=== PATIENT | male | born 1965 | race Hispanic/Latino ===

== ENCOUNTER 2016-09-05 08:22 | Inpatient (IN) | payer OTHER ==
[~2016-09-05] VITALS: Ht 182.9 cm; Wt 95.9 kg
[2016-09-05] MEDS ORDERED: ROBA750T4 PO (08:33)
[2016-09-05] MEDS ORDERED: IBUP-1114 PO (08:33)
[2016-09-05 08:58] LABS: BASO % 0.5 % (0.0-1.0); EOS # 0.2 K/mm3 (0.0-0.50); EOS % 3.8 % (0.0-3.0); LARGE UNSTAINED CELL # 0.1 K/mm3 (0.0-0.4); LARGE UNSTAINED CELL % 1.1 % (0.0-4.0); LYMPH # 1.3 K/mm3 (1.5-4.5); LYMPH % 21.1 % (24.0-44.0); MEAN CORPUSCULAR HEMOGLOBIN 31.6 pg (27.0-33.0); MONO # 0.3 K/mm3 (0.0-0.8); MONO % 4.6 % (0.0-5.0); NEUTROPHILS # 4.1 K/mm3 (1.8-7.7); NEUTROPHILS % 68.9 % (36.0-66.0); PLATELET COUNT, AUTOMATED 253 k/mm3 (150-450); RED CELL DISTRIBUTION WIDTH 12.4 % (11.5-14.5); WHITE BLOOD COUNT 5.9 K/mm3 (4.0-10.0)
--- NOTE | 2016-09-05 09:48 | REP ---
CT Head without contrast HISTORY: Syncope COMPARISON: None There is no intraparenchymal hemorrhage, acute infarct, mass or midline shift. The ventricular system is normal in appearance. There is no extra cerebral collection. There is no fracture. The visualized sinuses are clear. IMPRESSION: There is no intracranial lesion. Signed by Tyler Potter MD 09/05/2016 09:40 A
[2016-09-05 10:20] LABS: ANION GAP 5 MEQ/L (8-16); BLOOD UREA NITROGEN 20 MG/DL (7-18); CALCIUM LEVEL 8.6 MG/DL (8.5-10.1); CARBON DIOXIDE LEVEL 29 MEQ/L (21-32); CHLORIDE LEVEL 106 MEQ/L (98-107); CREATININE FOR GFR 1.05 MG/DL (0.70-1.30); GLOMERULAR FILTRATION RATE > 60.0 (>56); GLUCOSE, FASTING 104 MG/DL (70-105); MAGNESIUM LEVEL 2.2 MG/DL (1.8-2.4); POTASSIUM SERUM 4.5 MEQ/L (3.5-5.1); SODIUM LEVEL 140 MEQ/L (136-145)
[2016-09-05] MEDS ORDERED: LORazepam 2 MG/ML VIAL (J2060) IV STA (12:46)
--- NOTE | 2016-09-05 13:38 | REP ---
PORTABLE CHEST: AP portable view of the chest is performed without priors for comparison. There is mild elevation of the right hemidiaphragm. There is mild bibasilar fibroatelectatic change without acute infiltrate or pulmonary edema. The heart is normal in size and the mediastinal silhouette is unremarkable. IMPRESSION: No acute infiltrate. Signed by Ryan Cordoba MD 09/05/2016 05:38 P
--- NOTE | 2016-09-05 14:29 | REP ---
MR BRAIN WITHOUT CONTRAST: HISTORY: Syncope. COMPARISON: CT 09/05/2016. There are no areas of abnormal signal intensity in the brain. There is no intraparenchymal hemorrhage, infarct, mass, or midline shift. The ventricular system is normal in appearance. There is no extracerebral collection. Minimal mucosal thickening is present in the left mastoid air cells and right maxillary sinus. IMPRESSION: There is no intracranial lesion. Signed by Tyler Potter MD 09/05/2016 02:30 P
[2016-09-05] MEDS ORDERED: ACETAMINOPHEN TAB 650MG DOSE (2X325MG) PO PRN (15:30)
[2016-09-05] MEDS ORDERED: ONDANSETRON 4MG/2ML VIAL (J2405) IV PRN (15:30)
[2016-09-05] MEDS ORDERED: IBUP80TA PO (15:56)
[2016-09-05] MEDS ORDERED: METH-107 PO (15:56)
--- NOTE | 2016-09-05 15:58 | HPEPDOC ---
Medical History and Physical Date of Admission Sep 05, 2016 at 15:17 History and Physical ATTENDING: Dr. 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 No recent illnesses. States he had driven to [employer] for a meeting and was in his car (his had gone inside the building). He felt dizzy and was sitting on the cdl bulk driver's side. The car door was open. He states he felt a warm sensation come over his body and move downward. Subsequently he was found with hands resting on the wheel, his feet on the ground. He slumped over and had LOC for about 30 seconds. No jerking, tongue biting, incontinence. When he regained consciousness he recalls slurred speech for 15-20 min and has noticed disorientation after the episode and some in the ED. States he also feels tired. No prior h/o seizure. Denies any fevers, chills, weakness, fatigue, CORONA, CP, SOB, cough, palpitations, abdominal pain, N/V/D or changes in bowel or bladder habits. Upon presentation to the hospital the patient was found to have syncopal episode , thus the hospitalist team was consulted. PMHx: RBBB- pt states 25yr hx tobacco use back pain- uses ibuprofen as needed PSHX: appendectomy hernia repair pilonidal cyst colonoscopy SOCHX: Resides in: [facility] Marital Status: Kids: 6 Employment: [employer] Tobacco use: 1/2 ppd ETOH: 1-2 per week Illicit Drugs: Denies Recent travel: denies Advanced directives: none FAMHX: Mother: breast CA Father: respiratory failure Siblings: sister Children: Alive, well Unexpected deaths due to medical reasons: None. ROS: As noted in HPI, otherwise 11pt ROS of systems reviewed and unremarkable. PE: GEN: 50yoM, appears stated age. Well-nourished, well developed. No acute distress. Alert and oriented x 3. Initially somewhat disoriented but subsequently correctly answered all questions. HEENT: Normocephalic, atraumatic. Pupils are equal, round, and reactive to light. Extraocular movements are intact. No nystagmus appreciated. Sclera are nonicteric. Conjunctiva without injection. Nose midline. Nasal turbinates without bogginess. EACs both patent BL. TMs both visualized and brown with good cone of light, no bulging or erythema. No facial asymmetry. Moist mucous membranes. Dentition fair. Pharynx pink and moist, no cobblestoning. Neck supple , trachea midline. No lymphadenopathy or thyromegaly appreciated. CHEST: Regular rate and rhythm, +S1, +S2 LUNGS: Clear to auscultation bilaterally. No wheezes, rales, or rhonchi. Breathing appears symmetric and easy. Patient is speaking in full sentences. No accessory muscle use. ABD: Round, soft, non-tender, non-distended. +Bowel sounds throughout. No rebound or guarding. No costovertebral angle tenderness. EXT: Pulses 2+ bilaterally dorsalis pedis and radial. No lower extremity edema appreciated. SKIN: [place], dry, warm. Capillary refill <2sec. No rashes. NEURO: Alert and oriented x 3. Cranial nerves III-XII are intact. No focal deficits appreciated. CXR: No acute infiltrate. CT: head There is no intracranial lesion. MRI Brain There is no intracranial lesion. 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 No recent illnesses. States he had driven to [employer] for a meeting and was in his car. He felt dizzy and was sitting on the cdl bulk driver's side. The car door was open. He states he felt a warm sensation come over his body and move downward. Subsequently he was found with hands resting on the wheel. He slumped over and had LOC for about 30 seconds. The patient will be admitted to PCU to Dr. Dixon's service. Pt is discussed with Dr Geronimo. Syncopal episode. CIP/Trop neg. CIP/Trop x 2 pending. UA/UC, UDS pending. MRSA screen pending. Mag level pending. Resp panel pending. IVF. PCU/TM. Orthostatic VS. Echo requested. EEG pending. H/O Abnormal EKG. No acute EKG changes are noted. Pt states he has had RBBB for at least 25 years. Request copy of previous EKG for review as well. TM. Chronic LBP. Tylenol as needed. DVT prophylaxis. The patient is a Full Code Vital Signs Vital Signs Date Time Temp Pulse Resp B/P Pulse Ox O2 Delivery O2 Flow Rate FiO2 09/05/16 14:28 70 96 09/05/16 13:52 111/67 09/05/16 11:54 96.4 20 Room Air Laboratory Data Labs 24H Laboratory Tests 2 09/05/16 08:32: Bedside Glucose (Misc Panel) 111H 09/05/16 08:37: Anion Gap 5L, White Blood Count 5.9, Red Blood Count 4.57, Hemoglobin 14.4, Hematocrit 42.5, Mean Corpuscular Volume 93.0, Mean Corpuscular Hemoglobin 31.6 , Mean Corpuscular Hemoglobin Concent 34.0, Red Cell Distribution Width 12.4, Platelet Count 253, Neutrophils (%) (Auto) 68.9H, Lymphocytes (%) (Auto) 21.1L, Monocytes (%) (Auto) 4.6, Eosinophils (%) (Auto) 3.8H, Basophils (%) (Auto) 0.5 , Neutrophils # (Auto) 4.1, Lymphocytes # (Auto) 1.3L, Monocytes # (Auto) 0.3, Eosinophils # (Auto) 0.2, Basophils # (Auto) 0.0, Blood Urea Nitrogen 20H, Creatinine 1.05, Sodium Level 140, Potassium Level 4.5, Chloride Level 106, Carbon Dioxide Level 29, Calcium Level 8.6, Creatine Kinase MB 1.6, Creatine Kinase MB Relative Index 1.17, Glomerular Filtration Rate > 60.0, Large Unclassified Cells # 0.1, Large Unclassified Cells % 1.1, Magnesium Level 2.2, Thyroid Stimulating Hormone (TSH) 1.570, Total Creatine Kinase 136, Troponin I < 0.02 09/05/16 09:03: D-Dimer, Quantitative < 270.0 09/05/16 13:44: Creatine Kinase MB 1.4, Creatine Kinase MB Relative Index 1.33, Total Creatine Kinase 105, Troponin I < 0.02 CBC/BMP Laboratory Tests 09/05/16 08:37 Calcium Level 8.6, Red Blood Count 4.57, Mean Corpuscular Volume 93.0, Mean Corpuscular Hemoglobin 31.6, Mean Corpuscular Hemoglobin Concent 34.0, Red Cell Distribution Width 12.4, Neutrophils (%) (Auto) 68.9 H, Lymphocytes (%) (Auto) 21.1 L, Monocytes (%) (Auto) 4.6, Eosinophils (%) (Auto) 3.8 H, Basophils (%) ( Auto) 0.5, Neutrophils # (Auto) 4.1, Lymphocytes # (Auto) 1.3 L, Monocytes # ( Auto) 0.3, Eosinophils # (Auto) 0.2, Basophils # (Auto) 0.0 Home Medications Scheduled Ibuprofen (Ibuprofen) 400 Mg Tab 800 MG PO DAILY Scheduled PRN Methocarbamol (Robaxin-750) 750 Mg Tab 500 MG PO Q8HP PRN PRN BACK PAIN Allergies Coded Allergies: No Known Allergies (Unverified , 02/22/14) Joana Price Sep 05, 2016 15:57
[2016-09-05] MEDS ORDERED: TRAZ100T4 PO (15:59)
[2016-09-05] MEDS ORDERED: MELA0.02 PO (15:59)
[2016-09-05 17:15] VITALS: BP_SYST 127; BP_SYST 134; BP_SYST 138; BP_DIAS 58; BP_DIAS 70; BP_DIAS 72
[2016-09-05] MEDS: NS 1,000 ML IV SCH (17:38)
[2016-09-05 19:19] LABS: CALCIUM OXALATE CRYSTALS SMALL
[2016-09-05 19:27] LABS: METHADONE URINE NEGATIVE (NEGATIVE)
[2016-09-05 20:00] VITALS: BP_SYST 135; BP_SYST 139; BP_SYST 145; BP_DIAS 82; BP_DIAS 88; BP_DIAS 89
[2016-09-05] MEDS: traZODone 100 MG TAB PO SCH (20:28)
--- NOTE | 2016-09-05 21:45 | ECGEPIP ---
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
[2016-09-05 23:59] VITALS: BP 144/75
[2016-09-06] MEDS: NS 1,000 ML IV SCH (00:42)
[2016-09-06 04:45] VITALS: BP 133/67
[2016-09-06 05:36] LABS: BASO % 0.6 % (0.0-1.0); EOS # 0.3 K/mm3 (0.0-0.50); EOS % 4.5 % (0.0-3.0); LARGE UNSTAINED CELL # 0.1 K/mm3 (0.0-0.4); LARGE UNSTAINED CELL % 1.8 % (0.0-4.0); LYMPH # 1.9 K/mm3 (1.5-4.5); LYMPH % 27.4 % (24.0-44.0); MEAN CORPUSCULAR HEMOGLOBIN 31.5 pg (27.0-33.0); MEAN CORPUSCULAR VOLUME 92.7 fl (80.0-96.0); MONO # 0.4 K/mm3 (0.0-0.8); MONO % 5.4 % (0.0-5.0); NEUTROPHILS # 3.9 K/mm3 (1.8-7.7); NEUTROPHILS % 60.2 % (36.0-66.0); PLATELET COUNT, AUTOMATED 245 k/mm3 (150-450); RED CELL DISTRIBUTION WIDTH 12.5 % (11.5-14.5); WHITE BLOOD COUNT 6.5 K/mm3 (4.0-10.0)
[2016-09-06 05:56] LABS: ALBUMIN 3.2 GM/DL (3.2-5.2); ALKALINE PHOSPHATASE 93 U/L (45-117); ALT/SGPT 32 U/L (12-78); ANION GAP 2 MEQ/L (8-16); AST/SGOT 17 U/L (15-37); BILIRUBIN,TOTAL 0.1 MG/DL (0.2-1.0); BLOOD UREA NITROGEN 12 MG/DL (7-18); CARBON DIOXIDE LEVEL 28 MEQ/L (21-32); CHLORIDE LEVEL 110 MEQ/L (98-107); CHOLESTEROL LEVEL 124 MG/DL (<200); CREATININE FOR GFR 0.85 MG/DL (0.70-1.30); GLOMERULAR FILTRATION RATE > 60.0 (>56); GLUCOSE, FASTING 94 MG/DL (70-105); MAGNESIUM LEVEL 1.8 MG/DL (1.8-2.4); POTASSIUM SERUM 4.5 MEQ/L (3.5-5.1); SODIUM LEVEL 140 MEQ/L (136-145); TOTAL PROTEIN 6.4 GM/DL (6.4-8.2); TRIGLYCERIDES LEVEL 207 MG/DL (<150)
[2016-09-06 07:30] VITALS: BP 147/90
[2016-09-06] MEDS: ENOXAPARIN 30 MG/0.3 ML SYR (J1650) SC SCH (08:50)
[2016-09-06 13:00] VITALS: BP 164/95
--- NOTE | 2016-09-06 15:00 | IPNPDOC ---
Text Note Date of Service The patient was seen on 09/06/16. NOTE Subjective: Patient denies chest pain/palpitations/shortness of breath. No nausea/vomiting/abdominal pain. No recurrent episodes of syncope Objective: Vitals: (see below) General: No acute distress, laying comfortably in bed. HEENT: Moist mucous membranes. Neck: No JVD or lymphadenopathy Cardiac: RRR, No murmurs Pulm: Clear to auscultation b/l. No wheezing, rhonchi Abd: NT/ND + BS Ext: No edema or cyanosis Labs (see below) Images: MRI Brain 09/06/16 - IMPRESSION: There is no intracranial lesion. EKG: NSR, RBBB, no acute ST changes. Assessment/Plan 1. Syncope- ?arrhythmia/tachycardia/bradycardia given presentation, although there have been no rhythm changes noted on telemetry. 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 The patient states he's also been very stressed in the [employer], for which she takes these supplements in order to stay awake and energized. In addition patient may have had orthostatic hypotension given his initial presentation with hypotension and recent dehydration from training. Cardiac enzymes negative. EKG with chronic right bundle branch block. No acute ST changes. We'll continue to monitor in telemetry. Echocardiogram pending. MRI brain negative. EEG pending although unlikely seizure. 2. Chronic LBP - Tylenol PRN The patient and his were very frustrated during the emergency department stay. They were not satisfied with the timeline of events of when echocardiograms are done and read, as they would like to get back to their jobs. 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 I have advised them that patients are typically observed 24- 48 hours in telemetry after a syncopal event, especially if the cause of the event is not clear. They state that they are satisfied with the care that they had received while in PCU, but they are frustrated with the way they were treated in the ED. I have contacted the on-call laboratory chemist in the hopes of getting the echocardiogram read quicker. I have also advised the patient that he always has the choice of leaving AMA. DVT prophy: Enoxaparin Update 5:20pm: Discussed with Dr. Alexander - there are no structural abnormalities on echocardiogram, and the EF is 65%. He does recommend 72 hours observation in telemetry, as the patient's right bundle branch block may be contributing to a high degree block, or even complete heart block. If no high degree block is noted, then Dr. Alexander will evaluate the patient as an outpatient; if there is a high degree block, then he will place a permanent pacemaker during this admission. VS,Fishbone, I+O VS, Fishbone, I+O Laboratory Tests 09/06/16 05:10 Calcium Level 8.0 L, Aspartate Amino Transf (AST/SGOT) 17, Alanine Aminotransferase (ALT/SGPT) 32, Alkaline Phosphatase 93, Total Bilirubin 0.1 L, Triglycerides Level 207 H, Cholesterol Level 124, HDL Cholesterol 29 L, LDL Cholesterol 53.6, Total Protein 6.4, Albumin 3.2, Red Blood Count 4.42, Mean Corpuscular Volume 92.7, Mean Corpuscular Hemoglobin 31.5, Mean Corpuscular Hemoglobin Concent 34.0, Red Cell Distribution Width 12.5, Neutrophils (%) (Auto ) 60.2, Lymphocytes (%) (Auto) 27.4, Monocytes (%) (Auto) 5.4 H, Eosinophils (% ) (Auto) 4.5 H, Basophils (%) (Auto) 0.6, Neutrophils # (Auto) 3.9, Lymphocytes # (Auto) 1.9, Monocytes # (Auto) 0.4, Eosinophils # (Auto) 0.3, Basophils # ( Auto) 0.0 Vital Signs Date Time Temp Pulse Resp B/P Pulse Ox O2 Delivery O2 Flow Rate FiO2 09/06/16 13:00 98.0 65 22 164/95 96 Room Air I&O- Last 24 Hours up to 6 AM 09/06/16 05:59 Intake Total 2400 ml Output Total 2875 ml Balance -475 ml GREGORIA CHILDRESS MD Sep 06, 2016 15:00
--- NOTE | 2016-09-06 15:15 | ECGEPIP ---
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 Electronically Signed On 09-06-2016 15:15:01 EDT by Hayden Alexander
[2016-09-06 16:50] VITALS: BP 144/80
--- NOTE | 2016-09-06 17:53 | ECHO ---
DATE OF PROCEDURE: 09/06/2016 REFERRING PHYSICIAN: Alexia Geronimo MD INDICATION: Syncope. HEIGHT: 183 cm WEIGHT: 93 kg 2D MEASUREMENTS: Ventricular septum: 1.20 cm Posterior wall: 1.20 cm Left ventricle diastole: 5.8 cm LVOT: 2.25 cm Aortic root: 3.4 cm Aortic annulus: 2.2 cm Left atrium: 3.4 cm DOPPLER MEASUREMENTS: Aortic valve velocity: 116 cm/s LVOT velocity: 116 cm/s LVOT VTI: 19.6 cm Mitral E velocity: 69.6 cm/s Mitral A velocity: 46.9 cm/s Mitral deceleration time: 264 ms Mild tricuspid regurgitation. Estimated right ventricle systolic pressure 22 mmHg assuming a right atrial pressure of 5 mmHg. MITRAL ANNULAR TISSUE DOPPLER: E prime septal: 6.4 cm/s E prime lateral: 9.0 cm/s DESCRIPTION: Rhythm was sinus. Image quality was fair. No pericardial effusion. CONCLUSIONS: 1. Slight dilatation of the left ventricle at end-diastole. Slight eccentric left ventricle hypertrophy. No regional wall motion abnormalities of the left ventrilce. Normal left ventricle (LV) systolic function. Left ventricular ejection fraction (LVEF) of 65% by visual estimate. 2. Normal right ventricle size and systolic function. Normal estimated pulmonary artery systolic pressure. 3. Normal cardiac valve. 4. No pericardial effusion.
--- NOTE | 2016-09-06 18:25 | ECGEPIP ---
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
[2016-09-06 20:00] VITALS: BP 144/92
[2016-09-06] MEDS: traZODone 100 MG TAB PO SCH (21:14)
[2016-09-06 23:58] VITALS: BP 142/85
[2016-09-07 04:45] VITALS: BP 130/86
[2016-09-07 07:10] VITALS: BP 130/70
[2016-09-07 08:17] LABS: MEAN CORPUSCULAR HEMOGLOBIN 31.1 pg (27.0-33.0); MEAN CORPUSCULAR HGB CONC 33.7 g/dl (32.0-36.5); MEAN CORPUSCULAR VOLUME 92.2 fl (80.0-96.0); RED CELL DISTRIBUTION WIDTH 12.4 % (11.5-14.5); WHITE BLOOD COUNT 5.7 K/mm3 (4.0-10.0)
[2016-09-07 08:24] LABS: ANION GAP 4 MEQ/L (8-16); BLOOD UREA NITROGEN 11 MG/DL (7-18); CALCIUM LEVEL 8.7 MG/DL (8.5-10.1); CARBON DIOXIDE LEVEL 30 MEQ/L (21-32); CHLORIDE LEVEL 106 MEQ/L (98-107); CREATININE FOR GFR 0.86 MG/DL (0.70-1.30); GLOMERULAR FILTRATION RATE > 60.0 (>56); GLUCOSE, FASTING 87 MG/DL (70-105); MAGNESIUM LEVEL 1.8 MG/DL (1.8-2.4); POTASSIUM SERUM 4.1 MEQ/L (3.5-5.1); SODIUM LEVEL 140 MEQ/L (136-145)
[2016-09-07] MEDS: ENOXAPARIN 30 MG/0.3 ML SYR (J1650) SC SCH (09:23)
[2016-09-07] MEDS ORDERED: SLF 3 ML SYR IV PRN (10:15)
--- NOTE | 2016-09-07 11:32 | IPNPDOC ---
Text Note Date of Service The patient was seen on 09/07/16. NOTE Subjective: Patient denies chest pain/palpitations/shortness of breath. No recurrent episodes of syncope. Objective: Vitals: (see below) General: No acute distress, laying comfortably in bed. HEENT: Moist mucous membranes. Neck: No JVD or lymphadenopathy Cardiac: RRR, No murmurs Pulm: Clear to auscultation b/l. No wheezing, rhonchi Abd: NT/ND + BS Ext: No edema or cyanosis Labs (see below) Images: MRI Brain 09/06/16 - IMPRESSION: There is no intracranial lesion. EKG: NSR, RBBB, no acute ST changes. Echocardiogram 09/06/16 CONCLUSIONS: 1. Slight dilatation of the left ventricle at end-diastole. Slight eccentric left ventricle hypertrophy. No regional wall motion abnormalities of the left ventrilce. Normal left ventricle (LV) systolic function. Left ventricular ejection fraction (LVEF) of 65% by visual estimate. 2. Normal right ventricle size and systolic function. Normal estimated pulmonary artery systolic pressure. 3. Normal cardiac valve. 4. No pericardial effusion. Assessment/Plan 1. Syncope- ?arrhythmia/tachycardia/bradycardia given presentation, although there have been no rhythm changes noted on telemetry. Of note, the patient does states that he takes energy drinks including Monster, as well as [employer] thermogenic complex, which likely contributed to his dehydration, especially as he has decreased fluid intake. The patient states he's also been very stressed in the [employer], for which she takes these supplements in order to stay awake and energized. In addition patient may have had orthostatic hypotension given his initial presentation with hypotension and recent dehydration from training. Cardiac enzymes negative. EKG with chronic right bundle branch block. No acute ST changes. We'll continue to monitor in telemetry. Echocardiogram (see above) MRI brain negative. EEG pending although unlikely seizure. Discussed with Dr. Alexander - there are no structural abnormalities on echocardiogram, and the EF is 65%. He does recommend 72 hours observation in telemetry, as the patient's right bundle branch block may be contributing to a high degree block, or even complete heart block. If no high degree block is noted, then Dr. Alexander will evaluate the patient as an outpatient; if there is a high degree block, then he will place a permanent pacemaker during this admission. Overnight 09/06/16, pt had HR with lowest 47 with some PVCs while sleeping; asymptomatic. No high degree blocks. 2. Chronic LBP - Tylenol PRN DVT prophy: Enoxaparin VS,Fishbone, I+O VS, Fishbone, I+O Laboratory Tests 09/07/16 07:55 Calcium Level 8.7, Red Blood Count 4.61, Mean Corpuscular Volume 92.2, Mean Corpuscular Hemoglobin 31.1, Mean Corpuscular Hemoglobin Concent 33.7, Red Cell Distribution Width 12.4 Vital Signs Date Time Temp Pulse Resp B/P Pulse Ox O2 Delivery O2 Flow Rate FiO2 09/07/16 07:10 97.3 68 18 130/70 96 Room Air I&O- Last 24 Hours up to 6 AM 09/07/16 06:00 Intake Total 3780 ml Output Total 2075 ml Balance 1705 ml GREGORIA CHILDRESS MD Sep 07, 2016 11:32
[2016-09-07 12:00] VITALS: BP 130/70
[2016-09-07] MEDS ORDERED: SLF 3 ML SYR IV SCH (14:00)
[2016-09-07 16:00] VITALS: BP 132/86
[2016-09-07 20:00] VITALS: BP 118/76
--- NOTE | 2016-09-07 20:39 | ECGEPIP ---
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
[2016-09-07] MEDS: traZODone 100 MG TAB PO SCH (21:22)
--- NOTE | 2016-09-07 21:39 | EEG ---
DATE OF PROCEDURE: 09/06/2016 REFERRING PHYSICIAN: Dr. Alfonzo Dixon DIAGNOSIS: Syncope. 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 He was found with his hands resting on steering wheel. This EEG was done to rule out epileptic potential. He is currently taking trazodone, Ativan, etc. TECHNICAL DESCRIPTION: This digital EEG was recorded by 21 scalp, ear and two EKG electrodes and was reviewed in bipolar and referential montages following reformatting in 10-20 international electrode placement system. INTERPRETATION: The patient was noted to be in awake and drowsy states during this EEG. Resting awake background rhythm consisted of well-formed posterior dominant rhythm with anterior/posterior gradient comprising of 9 Hz alpha activity measuring 15-40 microvolts in amplitude which was symmetric and reactive to eye opening. Attenuation of posterior dominant rhythm was seen during transition into drowsiness. Stage I and II sleep were reviewed and were symmetric bilaterally. Hyperventilation and photic stimulation remained unremarkable. EKG revealed normal sinus rhythm. No focal, lateralizing or epileptiform abnormalities were seen. No clinical or electrographic seizures were recorded. CONCLUSION: This EEG in awake, drowsy states, stage I and II sleep is within normal limits.
[2016-09-08] VITALS: BP 135/73
[2016-09-08 04:00] VITALS: BP 120/80
[2016-09-08 05:08] LABS: MEAN CORPUSCULAR HEMOGLOBIN 31.8 pg (27.0-33.0); MEAN CORPUSCULAR HGB CONC 34.2 g/dl (32.0-36.5); MEAN CORPUSCULAR VOLUME 92.9 fl (80.0-96.0); RED CELL DISTRIBUTION WIDTH 12.3 % (11.5-14.5); WHITE BLOOD COUNT 6.7 K/mm3 (4.0-10.0)
[2016-09-08 05:35] LABS: ANION GAP 7 MEQ/L (8-16); BLOOD UREA NITROGEN 12 MG/DL (7-18); CALCIUM LEVEL 8.6 MG/DL (8.5-10.1); CARBON DIOXIDE LEVEL 28 MEQ/L (21-32); CHLORIDE LEVEL 105 MEQ/L (98-107); CREATININE FOR GFR 0.85 MG/DL (0.70-1.30); GLOMERULAR FILTRATION RATE > 60.0 (>56); GLUCOSE, FASTING 98 MG/DL (70-105); MAGNESIUM LEVEL 1.9 MG/DL (1.8-2.4); POTASSIUM SERUM 3.9 MEQ/L (3.5-5.1); SODIUM LEVEL 140 MEQ/L (136-145)
[2016-09-08 07:05] VITALS: BP 121/75
[2016-09-08] MEDS: ENOXAPARIN 30 MG/0.3 ML SYR (J1650) SC SCH (09:00)
--- NOTE | 2016-09-08 13:53 | DS.PDOC ---
Discharge Summary General Date of Admission Sep 05, 2016 at 15:17 Date of Discharge Sep 08, 2016 at 12:02 Attending Physician: GREGORIA CHILDRESS MD Specialist/Consultants Involve: Haydne Alexander Discharge Summary PROCEDURES PERFORMED DURING STAY: None. ADMITTING/DISCHARGE DIAGNOSES: 1. Syncope likely secondary to vasovagal and dehydration 2. Chronic lower back pain COMPLICATIONS/CHIEF COMPLAINT: Syncope. HISTORY OF PRESENT ILLNESS/HOSPITAL COURSE: . 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 The patient then had a warm sensation, flushed, and had a syncopal episode. When he regained consciousness the patient had a questionable slurred speech and disorientation. Patient had no prior seizures or syncopal episodes. Of note the patient was borderline hypotensive. Patient states that he's been drinking a lot of energy drinks including monster drinks and supplements. 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 During the hospitalization, the patient did have a few episodes of bradycardia in the high 40s with rare PVCs while he was sleeping however the patient was asymptomatic. Patient's EKG had chronic right bundle branch block with no acute changes. Cardiac congestive been negative. Echocardiogram (see below), was discussed with Dr. Alexander with no findings to suggest a cause for his syncope, aside from his dehydration, hypotension and vasovagal presentation. I also discuss this case with Dr. Martinez, who believes that the patient likely has a vasovagal episode and may go back to work. The patient will be following up with Dr. Alexander next week. DISCHARGE MEDICATIONS: Please see below. ALLERGIES: Please see below. PHYSICAL EXAMINATION ON DISCHARGE: Vitals: (see below) General: No acute distress, laying comfortably in bed. HEENT: Moist mucous membranes. Neck: No JVD or lymphadenopathy Cardiac: RRR, No murmurs Pulm: Clear to auscultation b/l. No wheezing, rhonchi Abd: NT/ND + BS Ext: No edema or cyanosis LABORATORY DATA: Please see below. IMAGING: MRI Brain 09/06/16 - IMPRESSION: There is no intracranial lesion. EKG: NSR, RBBB, no acute ST changes. Echocardiogram 09/06/16 CONCLUSIONS: 1. Slight dilatation of the left ventricle at end-diastole. Slight eccentric left ventricle hypertrophy. No regional wall motion abnormalities of the left ventrilce. Normal left ventricle (LV) systolic function. Left ventricular ejection fraction (LVEF) of 65% by visual estimate. 2. Normal right ventricle size and systolic function. Normal estimated pulmonary artery systolic pressure. 3. Normal cardiac valve. 4. No pericardial effusion. PROGNOSIS: Good ACTIVITY: As tolerated. DIET: As tolerated. Patient advised to stay hydrated. DISCHARGE PLAN: Home with DISPOSITION: Home, Self-Care. DISCHARGE INSTRUCTIONS: 1. Follow-up with PCP and Dr. Alexander in one week. Patient states he will call Dr. Alexander's office on Saturday. DISCHARGE CONDITION: Stable. TIME SPENT ON DISCHARGE: Greater than 30 minutes. Vital Signs/I&Os Vital Signs Date Time Temp Pulse Resp B/P Pulse Ox O2 Delivery O2 Flow Rate FiO2 09/08/16 07:05 98.3 66 18 121/75 95 Room Air I&O- Last 24 Hours up to 6 AM 09/08/16 05:59 Intake Total 2040 ml Output Total 750 ml Balance 1290 ml Laboratory Data Labs 24H Laboratory Tests 2 09/08/16 04:46: Anion Gap 7L, Blood Urea Nitrogen 12, Creatinine 0.85, Sodium Level 140, Potassium Level 3.9, Chloride Level 105, Carbon Dioxide Level 28, Calcium Level 8.6, Glomerular Filtration Rate > 60.0, Magnesium Level 1.9 CBC/BMP Laboratory Tests 09/08/16 04:46 Calcium Level 8.6, Red Blood Count 4.79, Mean Corpuscular Volume 92.9, Mean Corpuscular Hemoglobin 31.8, Mean Corpuscular Hemoglobin Concent 34.2, Red Cell Distribution Width 12.3 Microbiology Microbiology 09/05/16 MRSA Screen - Final, Complete 09/05/16 Respiratory Virus Panel (PCR) ([place]) - Final, Complete 09/05/16 Urine Culture - Final, Complete Discharge Medications Scheduled Trazodone HCl (Trazodone HCl) 100 Mg Tab 100 MG PO QHS (Reported) Scheduled PRN (Melatonin) 3 Mg Tab 3 MG PO DAILY PRN PRN SLEEP (Reported) Ibuprofen (Ibuprofen) 800 Mg Tab 800 MG PO Q6H PRN PRN PAIN (Reported) Methocarbamol (Methocarbamol) 500 Mg Tab 500 MG PO Q8HP PRN PRN BACK PAIN ( Reported) 1-3 TABLETS Q8H Allergies Coded Allergies: No Known Allergies (Unverified , 02/22/14) GREGORIA CHILDRESS MD Sep 08, 2016 13:53
--- NOTE | 2016-09-09 20:24 | ECGEPIP ---
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
== END 2016-09-08 12:02 | disposition home or self-care (01) | DRG 312 ==
LOC: EDBD 08:22 → M ED 09:43 → OBSVTOIN 15:17 → M ED INP 15:17 → M PCU 17:09
PROVIDERS: ADMIT General Practice; ATTEND Internal Medicine
DX: R55 Syncope and collapse (principal); E86.0 Dehydration; M54.5 Low back pain; I45.10 Unspecified right bundle-branch block; F17.210 Nicotine dependence, cigarettes, uncomplicated; Z79.899 Other long term (current) drug therapy; Z80.3 Family history of malignant neoplasm of breast; Z83.6 Family history of other diseases of the respiratory system

== ENCOUNTER → 2021-10-19 | Outpatient (REF) ==
[~2021-10-19] MED LIST: IBUP-1114 PO; IBUP80TA PO; MELA3TAB49 PO; METH-1164 PO; ROBA750T4 PO; TRAZ-257 PO
== END ==
LOC: M PLAIMG 10:37
PROVIDERS: ATTEND Internal Medicine
DX: R06.02 Shortness of breath (principal); R10.13 Epigastric pain; M79.641 Pain in right hand; M79.642 Pain in left hand

== ENCOUNTER → 2023-09-30 | Outpatient (REF) | payer OTHER ==
[2023-09-30 17:55] LABS: APPEARANCE, URINE CLEAR (CLEAR); BACTERIA, URINE AUTO NEGATIVE (NEGATIVE); BILIRUBIN, URINE AUTO NEGATIVE (NEGATIVE); BLOOD, URINE BLOOD NEGATIVE (NEGATIVE); COLOR, URINE YELLOW (YELLOW); GLUCOSE, URINE (UA) AUTO NEGATIVE (NEGATIVE); KETONE, URINE AUTO NEGATIVE (NEGATIVE); LEUKOCYTE ESTERASE, URINE AUTO NEGATIVE (NEGATIVE); NITRITE, URINE AUTO NEGATIVE (NEGATIVE); PROTEIN, URINE AUTO NEGATIVE (NEGATIVE); RBC, URINE AUTO 0 /HPF (0-3); SPECIFIC GRAVITY URINE AUTO 1.028 (1.002-1.035); SQUAMOUS EPITHELIAL CELL UR AU 0 /HPF (0-6); UROBILINOGEN, URINE AUTO 0.2 mg/dL (0.0-2.0); WBC, URINE AUTO 0 /HPF (0-3)
== END ==
LOC: M SMT 17:00
PROVIDERS: ATTEND Nurse Practitioner Family
DX: R31.29 Other microscopic hematuria (principal)

== ENCOUNTER → 2023-10-15 | Outpatient (CLI) | payer OTHER ==
[~2023-10-15] MED LIST changes: +ISOVUE-370 76% 100ML VIAL ONE
== END ==
LOC: M PLAIMG 13:47
PROVIDERS: ATTEND Nurse Practitioner Family
DX: N20.0 Calculus of kidney (principal); R31.29 Other microscopic hematuria
CPT/HCPCS: 74178; Q9967

== ENCOUNTER → 2024-08-10 | Outpatient (CLI) | payer OTHER ==
[~2024-08-10] MED LIST changes: -ISOVUE-370 76% 100ML VIAL ONE
== END ==
LOC: M RAD 15:39
PROVIDERS: ATTEND Internal Medicine
DX: Z12.2 Encounter for screening for malignant neoplasm of respiratory organs (principal); F17.211 Nicotine dependence, cigarettes, in remission